=== PATIENT | male | born 1960 ===

== ENCOUNTER 2017-11-27 09:18 | Day surgery (SDC) | payer BC ==
[2017-11-21 10:08] VITALS: BMI 26.9
[2017-11-27] MEDS ORDERED: cefTRIAXone (Rocephin) 1 gm Inj ONE (10:12)
[2017-11-27] MEDS ORDERED: Lidocaine 2% Jelly (Uro-Jet) ONE (10:12)
[2017-11-27] MEDS ORDERED: Bupivacaine HCl 0.5% PF (30 ml) Inj ONE (10:29)
[2017-11-27] MEDS ORDERED: Lactated Ringer's 1,000 ML IV ONE (11:00)
[2017-11-27] MEDS ORDERED: Midazolam 2 MG/2 ML VIAL ONE (11:05)
[2017-11-27] MEDS ORDERED: cefTRIAXone (Rocephin) 1 gm Inj IM ONE (11:05)
[2017-11-27] MEDS ORDERED: Propofol 10 mg/ml Inj (20 ML) ONE (11:05)
[2017-11-27] MEDS ORDERED: Bupivacaine 0.5% 50 ML IJ ONE ×2 (11:15)
[2017-11-27] MEDS ORDERED: HYDROmorphone 0.5 mg/0.5 ml ISec IVP PRN (11:46)
[2017-11-27 13:19] VITALS: RESP 18; O2SAT 97
[2017-11-27 14:06] VITALS: BP 124/72; PULSE 80; TEMP 97.6
--- NOTE | 2017-11-27 23:26 | OP ---
PROCEDURE DATE: 11/27/2017 PREOPERATIVE DIAGNOSIS: Phimosis. POSTOPERATIVE DIAGNOSIS: Phimosis. PROCEDURE PERFORMED: Circumcision under general anesthesia. SURGEON: Obi Joyner MD DESCRIPTION OF PROCEDURE: The patient was placed on the operating room table in a supine position. The area of the groin was draped and prepped at this time. Using 10 mL of lidocaine locally infiltrated the base of the penis, I then made circumferential incisions around the redundant foreskin. I removed the foreskin, cauterized some active bleeders, and then reapproximated the skin edges with multiple interrupted 4-0 chromic sutures. Once this was done, I placed compressive Coban dressing over the wound site. The patient was taken from the operating room in good condition. Estimated blood loss to be less than 10 mL. Obi Joyner MD
== END 2017-11-27 14:40 | disposition home or self-care (01) ==
LOC: H.OPSURG 09:18
PROVIDERS: ATTEND Urology
DX: N47.1 Phimosis (principal)
CPT/HCPCS: 54161; 82948; 88305; J0696; J2001; J2250; J2704; J2765; J3010; J7030; J7120